=== PATIENT | female | born 1965 | race Two or more races ===

== ENCOUNTER 2019-06-24 13:33 | Emergency (ER) | payer SELFPAY ==
[~2019-06-24] VITALS: Ht 160 cm; Wt 88.0 kg
[2019-06-24] MEDS ORDERED: ACETAMINOPHEN325 M1 ORAL (13:46)
--- NOTE | 2019-06-24 13:48 | NUR ---
ED Nurse Note: pt walked in to ed for c/o posterior neck, left rib cage, and left breast x 3 days. denies recent trauma
[2019-06-24 13:49] VITALS: BP 148/96
--- NOTE | 2019-06-24 14:14 | Emergency Room Report ---
History of Present Illness General Chief Complaint: Pain Source: Patient Present Illness HPI 54 YO female presents to the ER with multiple complaints. One is 3 out of 10 severity posterior neck pain x3 days. Patient denies trauma or fall. Patient denies midline bony tenderness. Patient denies headache. Patient is also complaining of intermittent 3 out of 10 severity lower abdominal pain x1 week and subjective fevers. Patient states that she was seen by a primary care clinic who just looked at her ears and throat on 06/18 and prescribed her Tylenol. Patient reports pain in the chest area as well under the left breast. Patient denies shortness of breath, palpitations, nausea or vomiting. Patient denies constipation or diarrhea. Denies recent travel. Denies contact with persons who have tested positive for or are under investigation/quarantine for COVID-19. Patient reports that she is not currently having pain. She denies cough. She denies hx of asthma, COPD or smoking. Pt. denies blood in the stool. No other aggravating or relieving factors. Allergies: Coded Allergies: No Known Allergies (Unverified , 06/24/19) COVID-19 Screening Contact w/high risk pt: No Recent Travel to affected area: No Experienced COVID-19 symptoms?: No Patient History Past Medical History: see triage record Past Surgical History: none Pertinent Family History: none Now: No Reviewed Nursing Documentation: PMH: Agreed; PSxH: Agreed Nursing Documentation-PMH Past Medical History: No Stated History Review of Systems All Other Systems: negative except mentioned in HPI Physical Exam Vital Signs Date Time Temp Pulse Resp B/P (MAP) Pulse Ox O2 Delivery O2 Flow Rate FiO2 06/24/19 13:43 98.4 81 19 152/96 (114) 95 Room Air Sp02 EP Interpretation: reviewed, normal General Appearance: no apparent distress, alert, GCS 15, non-toxic Head: normocephalic, atraumatic Eyes: bilateral eye normal inspection, bilateral eye PERRL ENT: hearing grossly normal, normal voice Neck: full range of motion, no bony tend, tender lateral Respiratory: chest non-tender, lungs clear, normal breath sounds, no respiratory distress, no accessory muscle use, no wheezing, speaking full sentences Cardiovascular #1: regular rate, rhythm, no edema, normal capillary refill Cardiovascular #2: 2+ radial (R), 2+ radial (L) Gastrointestinal: normal bowel sounds, non tender, soft, non-distended, no guarding Genitourinary: normal inspection, no CVA tenderness Musculoskeletal: back normal, normal range of motion, gait/station normal, non- tender Neurologic: alert, motor strength/tone normal, oriented x3, sensory intact, responsive, speech normal Psychiatric: judgement/insight normal Lymphatic: no adenopathy Medical Decision Making PA Attestation Dr. Rodriguez is my supervising Physician whom patient management has been discussed with. Diagnostic Impression: Primary Impression: Neck pain Additional Impressions: Rib pain on left side Abdominal pain Qualified Codes: R10.30 - Lower abdominal pain, unspecified ER Course 54 YO female presents to the ER with multiple complaints. One is 3 out of 10 severity posterior neck pain x3 days. Patient denies trauma or fall. Patient denies midline bony tenderness. Patient denies headache. Patient is also complaining of intermittent 3 out of 10 severity lower abdominal pain x1 week and subjective fevers. Patient states that she was seen by a primary care clinic who just looked at her ears and throat on 06/18 and prescribed her Tylenol. Patient reports pain in the chest area as well under the left breast. Patient denies shortness of breath, palpitations, nausea or vomiting. Patient denies constipation or diarrhea. Denies recent travel. Denies contact with persons who have tested positive for or are under investigation/quarantine for COVID-19. Patient reports that she is not currently having pain. She denies cough. She denies hx of asthma, COPD or smoking. Pt. denies blood in the stool. No other aggravating or relieving factors. Ddx considered but are not limited to MD, PE, costochondritis, anxiety, gastritis, meningitis, muscle strain, diverticulitis, acute appy, diarrhea,UC, PUD, GE, pancreatitis, gallstone just to name a few. Vital signs: are WNL, pt. is afebrile H&PE are most consistent with normal physical exam in a patient that is nontoxic in appearance and in no acute distress. Patient does not have any cardiac risk factors. Patient is not in respiratory distress. ORDERS: -EKG: WNL 64 bpm. NSR -UA: ED INTERVENTIONS: DISCHARGE: At this time pt. is stable for d/c to home. Will provide printed patient care instructions, and any necessary prescriptions. Care plan and follow up instructions have been discussed with the patient prior to discharge. Labs Test 06/24/19 13:53 Urine Color Pale yellow Urine Appearance Clear Urine pH 7 (4.5-8.0) Urine Specific Potter 1.005 (1.005-1.035) Urine Protein Negative (NEGATIVE) Urine Glucose (UA) Negative (NEGATIVE) Urine Ketones Negative (NEGATIVE) Urine Blood Negative (NEGATIVE) Urine Nitrite Negative (NEGATIVE) Urine Bilirubin Negative (NEGATIVE) Urine Urobilinogen Normal MG/DL (0.0-1.0) Urine Leukocyte Esterase Negative (NEGATIVE) EKG Diagnostic Results EP Interpretation: Dr. Rodriguez Rate: normal - 64 BPM Rhythm: NSR ST Segments: no acute changes ASA given to the pt in ED: No PA Scribe Text This Interpretation was scribed by SUE Fuentes. Last Vital Signs Date Time Temp Pulse Resp B/P (MAP) Pulse Ox O2 Delivery O2 Flow Rate FiO2 06/24/19 13:49 98.2 84 18 148/96 97 Room Air Disposition: HOME, SELF-CARE Condition: Stable Scripts Famotidine* (Pepcid 20mg tablet*) 20 Mg Tablet 20 MG ORAL TWICE A DAY for 7 Days, #14 TAB 0 Refills Prov: Juana Fuentes 06/24/19 Methocarbamol* (ROBAXIN-750*) 750 Mg Tablet 750 MG PO QID, #28 TAB 0 Refills Prov: Juana Fuentes 06/24/19 Referrals: [facility] Patient Instructions: Medical Screening Exam Additional Instructions: Take medications as directed. Do not drink alcohol, drive, or operate heavy machinery while taking Robaxin ( Muscle Relaxers) as this may cause drowsiness. Follow up with a Primary Care Provider in 3-5 days, even if your symptoms have resolved. --Please review list of primary care clinics, if you do not already have a primary care provider Return sooner to ED if new symptoms occur, or current symptoms become worse. - Please note that this Emergency Department Report was dictated using [employer] nurse technology software, occasionally this can lead to erroneous entry secondary to interpretation by the dictation equipment. Juana Fuentes Jun 24, 2019 14:14
--- NOTE | 2019-06-24 14:22 | NUR ---
ED Nurse Note: urine sample sent to lab
--- NOTE | 2019-06-24 14:38 | Diagnostic Imaging Report ---
EXAM: XR Chest, 1 View CLINICAL HISTORY: PAIN TECHNIQUE: Frontal view of the chest. COMPARISON: None FINDINGS: Hardware: None. Lungs/pleura: Normal. No focal consolidation. No pleural effusion or pneumothorax. Heart/mediastinum: Normal. No cardiomegaly. Soft tissues: Unremarkable. Bones: No acute fracture. Degenerative changes of the spine. Upper abdomen: Normal. IMPRESSION: No acute disease identified.
[2019-06-24 14:44] LABS: APPEARANCE,URINE CLEAR; BILIRUBIN, URINE NEGATIVE (NEGATIVE); COLOR,URINE PALE YELLOW; GLUCOSE, URINE (UA) NEGATIVE (NEGATIVE); KETONES,URINE NEGATIVE (NEGATIVE); LEUKOCYTE ESTERASE ,URINE NEGATIVE (NEGATIVE); NITRITE,URINE NEGATIVE (NEGATIVE); PH,URINE 7 (4.5-8.0); PROTEIN,URINE NEGATIVE (NEGATIVE); UROBILINOGEN,URINE NORMAL MG/DL (0.0-1.0)
[2019-06-24] MEDS ORDERED: FAMOTIDINE20 MG ORAL (14:54)
[2019-06-24] MEDS ORDERED: ROBAXIN-750750 MG PO (14:54)
[2019-06-24 15:08] VITALS: BP 150/90
--- NOTE | 2019-06-24 15:08 | NUR ---
ER DISCHARGE NOTE: Patient is cleared to be discharged per ERMD, pt is aox4, on room air, with stable vital signs. pt was given dc and prescription instructions, pt was able to verbalize understanding, pt id band removed without complications. pt is able to ambulate with steady gait. pt took all belongings.
== END 2019-06-24 15:08 | disposition home or self-care (01) ==
LOC: EMR 14:12
DX: M54.2 Cervicalgia (principal); R07.81 Pleurodynia; R10.30 Lower abdominal pain, unspecified
CPT/HCPCS: 71045; 81003; 93005; 99283